=== PATIENT | male | born 1965 | race African-American/Black ===

== ENCOUNTER 2018-04-16 14:44 | Emergency (ER) | payer OTHER ==
[~2018-04-16] VITALS: Ht 185.4 cm; Wt 99.8 kg
[2018-04-16] MEDS ORDERED: ACETAMINOPHEN 500 MG TAB PO ONE (15:00)
[2018-04-16 16:37] LABS: Urine Bacteria NONE SEEN /hpf (None Seen); Urine Mucus FEW (None Seen); Urine WBC 2 /hpf (0 - 3)
[2018-04-16 16:40] LABS: Urine Specific Gravity 1.027 (1.001-1.035)
[2018-04-16 16:41] LABS: Urine Blood Normal /uL (Negative)
[2018-04-16 16:53] LABS: Hemoglobin 15.8 g/dL (13.5-17.5); Mean Corpuscular Hemoglobin 27.9 pg (28.0-32.0); Mean Corpuscular Hgb Conc. 33.6 g/dL (32.0-36.0); Mean Corpuscular Volume 83.1 fL (80.0-100.0); Platelet Count (auto) 145 10^3/uL (140-450); Red Blood Cells 5.66 10^6/uL (4.5-5.90); Red Cell Distribution Width 13.7 % (11.8-14.3); White Blood Cell 3.1 10^3/uL (4.4-10.8)
[2018-04-16 17:01] LABS: Band Neutrophils % (manual) 0; Basophils % (manual) 0 (0.0-2.0); Blast Cells 0; Eosinophils % (manual) 0 (0-7); Metamyelocytes % 0; Myelocytes % 0; Promyelocytes % 0; Reactive Lymphocytes 0
[2018-04-16 17:04] LABS: Albumin 3.9 g/dL (3.4-5.0); Calcium 8.5 mg/dL (8.5-10.1); Magnesium 2.1 mg/dL (1.6-2.6)
[2018-04-16 17:10] LABS: BUN/Creatinine Ratio 7.8; Bilirubin, Total 0.4 mg/dL (0.2-1.0); Total Protein 8.3 g/dL (6.4-8.2)
[2018-04-16] MEDS ORDERED: SODIUM CHLORIDE 0.9% 1,000 ML IVB ONE (17:40)
[2018-04-16 17:41] LABS: Lymphocytes % (manual) 26 (10.0-50.0); Monocytes % (manual) 14 (0-12)
[2018-04-16] MEDS ORDERED: KETOROLAC TROMETH 30 MG/ML 1ML VIAL IV ONE (17:45)
[2018-04-16] MEDS ORDERED: cloNIDine HCL 0.1 MG TAB PO ONE (19:00)
[2018-04-16 21:50] VITALS: BP 165/72
== END 2018-04-16 22:28 | disposition home or self-care (01) ==
LOC: ER 14:44
DX: R10.31 Right lower quadrant pain (principal); E78.5 Hyperlipidemia, unspecified; I10 Essential (primary) hypertension
CPT/HCPCS: 36415; 74176; 80053; 81001; 83690; 83735; 84484; 85007; 85027; 93005; 94761; 96374; 99284; J1885; J7030